=== PATIENT | female | born 1990 | race American Indian/Alaskan Native ===

== ENCOUNTER 2018-10-03 15:15 | Emergency (ER) | payer MEDICAID, OTHER ==
[2018-10-03 15:15] VITALS: BMI 23.3
[2018-10-03] MEDS ORDERED: DiphenhydrAMINE 50 mg/ml Inj IVP STA (15:41)
[2018-10-03] MEDS ORDERED: Lactated Ringer's 1,000 ML IV STA (15:41)
[2018-10-03] MEDS ORDERED: Dextrose 5%/Lactated Ringer's 1,000 ML IV SCH (15:45)
--- NOTE | 2018-10-03 16:13 | ED PDOC ---
HPI: Abdomen Time Seen by Provider: 10/03/18 15:27 Chief Complaint (Nursing): Abdominal Pain Chief Complaint (Provider): Abdominal Pain History Per: Patient History/Exam Limitations: no limitations Onset/Duration Of Symptoms: Days (x1) Current Symptoms Are (Timing): Still Present Severity: Severe Location Of Pain/Discomfort: Epigastric Additional Complaint(s): 28 y/o female with a PMhx of Pancreatitis and hydradenitis suppuruative presents to the ED for evaluation of abdominal pain, onset one day ago. Patient describes pain as sharp and severe radiating to the back. Patient states pain is similar to previous episodes of pancreatitis. Patient admits to drinking alcohol last night. Patient reports pain is associated with multiple episodes of non-bloody, non-bilious vomiting, intermittent episodes of non-bloody diarrhea and chills. Otherwise, patient denies fever. Previous hospital records reviewed demonstrates patient's most recent hospitalization was at the end of August when she was diagnosed with alcohol gastritis. At that time, drug seeking behavior was considered during admission. Patient discharged and offered resources for alcohol and psychiatry of which she both refused. PMD: none Past Medical History Reviewed: Historical Data, Nursing Documentation, Vital Signs Vital Signs: Last Vital Signs Temp 98.2 F 10/03/18 15:28 Pulse 100 H 10/03/18 15:28 Resp 20 10/03/18 15:28 BP 149/120 H 10/03/18 15:28 Pulse Ox 100 10/03/18 15:28 - Medical History PMH: Pancreatitis Denies: Chronic Kidney Disease Other PMH: hydradenitis suppuruative - Surgical History Other surgeries: bilateral axillary abscess surgery - Family History Family History: States: Unknown Family Hx - Social History Current smoker - smoking cessation education provided: Yes Alcohol: > 2 Drinks/Day Drugs: Denies - Immunization History Hx Tetanus Toxoid Vaccination: No Hx Influenza Vaccination: No Hx Pneumococcal Vaccination: No - Home Medications Home Medications: Ambulatory Orders Medication Instructions Recorded Dicyclomine [Bentyl] 20 mg PO QID PRN #20 tab 10/03/18 Omeprazole Magnesium [Prilosec Otc] 20 mg PO DAILY #30 tcp 10/03/18 Ondansetron ODT [Zofran ODT] 1 odt PO Q6 PRN #20 odt 10/03/18 - Allergies Allergies/Adverse Reactions: Allergies Allergy/AdvReac Type Severity Reaction Status Date / Time No Known Allergies Allergy Verified 10/03/18 15:27 Review of Systems ROS Statement: Except As Marked, All Systems Reviewed And Found Negative (as per HPI) Constitutional: Positive for: Chills. Negative for: Fever Gastrointestinal: Positive for: Vomiting, Abdominal Pain, Diarrhea Physical Exam - Reviewed Nursing Documentation Reviewed: Yes Vital Signs Reviewed: Yes - Physical Exam Appears: Positive for: In Acute Distress (mild, painful) Head Exam: Positive for: ATRAUMATIC, NORMOCEPHALIC Skin: Positive for: Warm, Dry Eye Exam: Positive for: EOMI, PERRL. Negative for: Scleral icterus ENT: Positive for: Pharynx Is (clear), Other (Moist Mucous Membranes) Neck: Positive for: Painless ROM, Supple Cardiovascular/Chest: Positive for: Tachycardia (with regular rhythm) Respiratory: Positive for: Normal Breath Sounds. Negative for: Wheezing Gastrointestinal/Abdominal: Positive for: Soft, Tenderness (epigastric tenderness to palpation). Negative for: Mass, Distended, Guarding, Rebound, Asicites Back: Positive for: Normal Inspection. Negative for: Decreased ROM Extremity: Positive for: Normal ROM. Negative for: Deformity Lymphatic: Negative for: Adenopathy Neurologic/Psych: Positive for: Alert. Negative for: Motor/Sensory Deficits - Laboratory Results Result Diagrams: 10/03/18 16:06 10/03/18 16:06 - ECG O2 Sat by Pulse Oximetry: 100 (RA) Pulse Ox Interpretation: Normal Medical Decision Making Medical Decision Making: Time: 1549 Impression: Abdominal Pain. Differentials include but not limited to gastritis, pancreatitis, opioid dependence, enteritis, dehydration and electrolyte abnormality. Plan: -- Alcohol Serum -- CMP -- Urine Drug Screen -- HCG, Qualitative Serum -- Lact Acid, Plasma -- LDH -- Lipase -- Magnesium -- Phosphorus -- ED Urine -- ED Urine Dipstick -- CBC with differentials -- PTT -- Prothrombin time -- Benadryl 25 mg IVP -- Dextrose 5%/Lactated Ringer's 1000 ml IV 100 mls/hr -- Lactated Ringer's IV 1000 mls/hr -- Protonix Inj 40 mg IVP -- Reglan 10 mg IV -- Toradol 15 mg IVP -- Zofran Inj 4 mg IVP -- Blood Culture -- IV Insertion Time: 1620 Plan: -- HCG, Qualitative Serum Time: 164 Plan: -- Abdomen Limited US Time: 1724 Plan: -- Toradol 15 mg IVP Time: 1737 US RESULTS FINDINGS: LIVER: Measures 17.9 cm in length. Increased echogenicity of the liver parenchyma. No mass. No intrahepatic bile duct dilatation. GALLBLADDER: Unremarkable. No gallstones. COMMON BILE DUCT: Stably prominent again measuring 7 mm. No visualized stones. PANCREAS: Limited evaluation due to overlying bowel gas. RIGHT KIDNEY: Measures 11.3 x 6.2 x 5.2 cm in length. Normal echogenicity. No calculus, mass, or hydronephrosis. AORTA: No aneurysmal dilatation. IVC: Unremarkable. OTHER FINDINGS: None . IMPRESSION: Hepatomegaly with steatosis. Stable prominence of the CBD measuring 7 mm, unchanged in size and appearance dating back to January 2016. Time: 1813 -- Maalox Plus 30 ml PO -- Lidocaine 2% Viscous 10 ml PO -- Bentyl 20 mg PO -- Dextrose 5% 1000 ml MVI 10 ml Vitamin B1 Inj 100 mg Folic Acid 1 mg IV 125 mls/hr Time: 1820 -- Labs reviewed and demonstrate elevated transaminases and blood alcohol level but a normal lipase. Liver function abnormality likely due to alcohol dependence and use. Discussed with patient findings. Additional IV fluid, GI cocktail given. Scribe Attestation: Documented by Jose Phoenix, acting as a scribe for Vi Helton MD. Provider Scribe Attestation: All medical record entries made by the Scribe were at my direction and personally dictated by me. I have reviewed the chart and agree that the record accurately reflects my personal performance of the history, physical exam, medical decision making, and the department course for this patient. I have also personally directed, reviewed, and agree with the discharge instructions and disposition. Disposition - Clinical Impression Clinical Impression: Abdominal pain, Alcoholic gastritis, Alcohol use disorder, severe, dependence Counseled Patient/Family Regarding: Studies Performed, Diagnosis, Need For Followup, Rx Given - Disposition Referrals: [facility] [Outside] Alcoholics Anonymous [Outside] Disposition: Routine/Home Disposition Time: 21:52 Condition: STABLE Additional Instructions: YOU HAVE A SERIOUS PROBLEM WITH ALCOHOL AND IT IS WILL EVENTUALLY KILL YOU. PLEASE STOP DRINKING. GO TO [facility] SOON POSSIBLE AND GO TO CLINIC NEXT WEEK FOR FURTHER MEDICAL MANAGEMENT. Prescriptions: Dicyclomine [Bentyl] 20 mg PO QID PRN #20 tab PRN Reason: abdominal pain Omeprazole Magnesium [Prilosec Otc] 20 mg PO DAILY #30 tcp Ondansetron ODT [Zofran ODT] 1 odt PO Q6 PRN #20 odt PRN Reason: Nausea/Vomiting Instructions: Acute Abdomen (Belly Pain), Adult (DC), Alcohol Abuse and Alcoholism (DC)
[2018-10-03] MEDS ORDERED: DiphenhydrAMINE 50 mg/ml Inj ONE (16:17)
[2018-10-03 16:41] LABS: BLOOD UREA NITROGEN 10 mg/dl (7-17); CALCIUM 8.4 mg/dL (8.4-10.2); GFR NON-AFRICAN AMERICAN > 60; INR 1.2; LIPASE 402 U/L (23-300); PROTHROMBIN TIME 13.5 Seconds (9.8-13.1)
[2018-10-03 16:43] LABS: ALBUMIN 4.2 g/dL (3.5-5.0); ALT/SGPT 113 U/L (9-52); AST/SGOT 249 U/L (14-36); PARTIAL THROMBOPLASTIN TIME 30.1 Seconds (25.6-37.1)
[2018-10-03 16:47] LABS: BASO % 0.7 % (0.0-2.0); EOS # 0.1 K/uL (0.0-0.7); EOS % 1.4 % (0.0-4.0); HEMOGLOBIN 11.3 g/dL (12.0-16.0); LYMPH # 1.9 K/uL (1.0-4.3); LYMPH % 47.6 % (20.0-40.0); MEAN CELL VOLUME 94.5 fl (81.0-99.0); MEAN CORPUSCULAR HEMOGLOBIN 30.5 pg (27.0-31.0); MEAN CORPUSCULAR HGB CONC 32.3 g/dL (33.0-37.0); MEAN PLATELET VOLUME 8.4 fl (7.2-11.7); MONO # 0.4 K/uL (0.0-0.8); MONO % 10.5 % (0.0-10.0); NEUT # 1.6 K/uL (1.8-7.0); NEUT % 39.8 % (50.0-75.0); NRBC % 0.3 % (0.0-0.0); RBC 3.71 Mil/uL (3.80-5.20); RED CELL DISTRIBUTION WIDTH 25.9 % (11.5-14.5); WHITE BLOOD COUNT 3.9 K/uL (4.8-10.8)
--- NOTE | 2018-10-03 18:05 | US ---
Date of service: 10/03/2018 HISTORY: upper abdominal pain h/o pancreatitis COMPARISON: Abdominal ultrasound dated 02/02/2016 TECHNIQUE: Sonographic evaluation of the right upper quadrant of the abdomen. FINDINGS: LIVER: Measures 17.9 cm in length. Increased echogenicity of the liver parenchyma. No mass. No intrahepatic bile duct dilatation. GALLBLADDER: Unremarkable. No gallstones. COMMON BILE DUCT: Stably prominent again measuring 7 mm. No visualized stones. PANCREAS: Limited evaluation due to overlying bowel gas. RIGHT KIDNEY: Measures 11.3 x 6.2 x 5.2 cm in length. Normal echogenicity. No calculus, mass, or hydronephrosis. AORTA: No aneurysmal dilatation. IVC: Unremarkable. OTHER FINDINGS: None . IMPRESSION: Hepatomegaly with steatosis. Stable prominence of the CBD measuring 7 mm, unchanged in size and appearance dating back to January 2016.
[2018-10-03 18:08] LABS: BARBITURATES, UR NEGATIVE (NEGATIVE); BENZODIAZEPINES, UR NEGATIVE (NEGATIVE); OPIATES, UR NEGATIVE (NEGATIVE); PHENCYCLIDINE, UR NEGATIVE (NEGATIVE)
[2018-10-03] MEDS ORDERED: Alum-Mag Hydrox-Simethicone Susp (30 mL) PO STA (18:14)
[2018-10-03] MEDS ORDERED: Multivitamin (MVI) 10 ML, Thiamine 100 MG, Folic Acid 1 MG in Dextrose 5%/0.45% NS 1,00... IV STA (18:15)
[2018-10-03] MEDS ORDERED: Alum-Mag Hydrox-Simethicone Susp (30 mL) ONE (18:46)
[2018-10-03 22:57] VITALS: BP 136/78; PULSE 88; RESP 18; TEMP 98.8
[2018-10-04 17:34] VITALS: O2SAT 100
== END 2018-10-03 22:53 | disposition home or self-care (01) ==
LOC: H.ER 15:15
DX: R10.9 Unspecified abdominal pain (principal); K29.20 Alcoholic gastritis without bleeding; F10.20 Alcohol dependence, uncomplicated; F17.200 Nicotine dependence, unspecified, uncomplicated; K85.90 Acute pancreatitis without necrosis or infection, unspecified
CPT/HCPCS: 76705; 80053; 80320; 80324; 80345; 80346; 80349; 80353; 80358; 80361; 81025; 83605; 83615; 83690; 83735; 83992; 84100; 85025; 85610; 85730; 87040; 96361; 96365; 96375; 99284; C9113; J1200; J1885; J2405; J2765; J3411; J7042; J7120